=== PATIENT | male | born 1930 | race Caucasian/White ===

== ENCOUNTER → 2016-10-21 | Outpatient (CLI) | payer OTHER ==
[~2016-10-21] MED LIST: CIPR1TAB10 PO; CLTP PO; DOCU-94 PO; LISI-461 PO; MULT-506 PO; NAPR1TAB9 PO; OXYC-57 PO; PSYL1.7W PO; REGADENOSON 0.4 MG/5 ML SYR ONE
--- NOTE | 2016-10-21 18:03 | MYOCARDIAL PERFUSION SCAN ---
IMAGING TECHNIQUE: For the stress portion of the study, 31.7 mCi of technetium- 99m Cardiolite IV was injected at 13:20 on 10/21/2016. Thirty minutes following the injection, imaging of the heart was performed in multiple projections. For the rest portion of the study, 10.0 mCi of technetium-99m Cardiolite was injected IV at 11:25 a.m. pharmacologic stress was achieved through injection of 0.4 mg Lexiscan. One hour following the injection, imaging of the heart was performed in the same projections. FINDINGS: The short axis, vertical long axis and horizontal long axis images were reviewed in detail. There was a moderate to large area of fixed apical decrease in perfusion and a moderate sized partially reversible inferolateral defect, which worsened with stress. 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 Left ventricular systolic function was moderately reduced with wall motion abnormalities in the infarcted regions and mild global hypokinesis. Ejection fraction was calculated at 38%. IMPRESSION: 1. 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 2. Moderately reduced left ventricular systolic function with apical and inferolateral wall motion abnormalities. 3. Moderately reduced left ventricular systolic function (ejection fraction = 38%). MTDD
== END | disposition home or self-care (01) ==
LOC: C.NUCL 10:50
PROVIDERS: ATTEND Internal Medicine Cardiovascular Disease
DX: Z01.810 Encounter for preprocedural cardiovascular examination (principal); R07.89 Other chest pain

== ENCOUNTER 2016-10-23 09:21 | Day surgery (SDC) | payer OTHER ==
[2016-10-07 10:02] VITALS: BMI 35.0
--- NOTE | 2016-10-07 10:49 | PAT Medication Instructions ---
Service Date Oct 07, 2016. Current Home Medication List Calcium/Vitamin D (Caltrate 600 Plus *), 1 TAB PO DAILY PRN for PRN Lisinopril (Zestril), 10 MG PO BID Multivitamin (Multivitamin), 1 TAB PO QAM Naproxen (Aleve), 220 MG PO Q12 PRN for AIN Psyllium (Metamucil), 2 TAB PO BID Medication Instructions For Your Scheduled Surgery - Check with surgeon for instructions: Naproxen (Aleve), 220 MG PO Q12 PRN for AIN - Hold the following medications the morning of surgery: Psyllium (Metamucil), 2 TAB PO BID Multivitamin (Multivitamin), 1 TAB PO QAM Lisinopril (Zestril), 10 MG PO BID Calcium/Vitamin D (Caltrate 600 Plus *), 1 TAB PO DAILY PRN for PRN - Hold the following medications the morning of surgery with a sip of water: Lisinopril (Zestril), 10 MG PO BID - Take the following medications as scheduled the night before surgery: Psyllium (Metamucil), 2 TAB PO BID Calcium/Vitamin D (Caltrate 600 Plus *), 1 TAB PO DAILY PRN for PRN If you have any questions please call us at [phone] (Fanny Watson PA-C) or [phone] or [phone]
--- NOTE | 2016-10-07 11:27 | DIAGNOSTIC IMAGING REPORT ---
CHEST PREADMISSION(PA/LAT) CLINICAL HISTORY: Preoperative chest COMPARISON STUDY: 10/03/2014 FINDINGS: The cardiac and mediastinal contours are normal. There is no evidence of focal pulmonary consolidation. There is no evidence of failure. No pleural effusions are visualized.[ IMPRESSION: No active disease in the chest. Electronically signed by: Mateo Calix M.D. 10/07/2016 11:26 AM
[2016-10-07 11:51] LABS: BASO % 0.4 %; BASO ABS # 0.03 K/uL (0-0.2); COMPLETE YES; EOS % 2.5 %; HEMATOCRIT 41.1 % (42-52); IG% 0.2 %; LYMPH % 12.3 %; LYMPH ABS # 1.02 K/uL (1.2-3.4); MEAN CORPUSCULAR HEMOGLOBIN 27.6 pg (25-34); MEAN CORPUSCULAR HGB CONC 32.8 g/dl (32-36); MEAN PLATELET VOLUME 10.7 fL (7.4-10.4); MONO % 8.1 %; NEUT % 76.5 %; PLATELET COUNT 223 K/uL (130-400); RED BLOOD COUNT 4.89 M/uL (4.7-6.1); WHITE BLOOD COUNT 8.28 K/uL (4.8-10.8)
[2016-10-07 12:05] LABS: PARTIAL THROMBOPLASTIN RATIO 1.1; PROTHROMBIN TIME (PATIENT) 10.4 SECONDS (9.0-12.0)
[2016-10-07 12:10] LABS: BUN/CREATININE RATIO 27.3 (10-20); CALCIUM 9.1 mg/dl (8.5-10.1); CREATININE 1.3 mg/dl (0.60-1.40); POTASSIUM 5.5 mmol/L (3.5-5.1)
[2016-10-07 12:26] LABS: URINE APPEARANCE CLOUDY (CLEAR); URINE BILIRUBIN NEG (NEG); URINE COLOR YELLOW; URINE NITRITE NEG (NEG); URINE SPECIFIC GRAVITY 1.016 (1.000-1.030); UROBILINOGEN NEG (NEG)
[2016-10-07 12:38] LABS: MANUAL MICROSCOPIC REQUIRED? NO; REVIEW REQ? YES
[~2016-10-23] VITALS: Ht 170.2 cm; Wt 102.6 kg
[~2016-10-23 09:21] MED LIST changes: -CIPR1TAB10 PO; +CIPROFLOXACIN / D5W 400 MG IV SCH; -DOCU-94 PO; +LACTATED RINGER'S 1000ML 1,000 ML IV SCH; +MITOMYCIN FOR IR SCH; -OXYC-57 PO; -REGADENOSON 0.4 MG/5 ML SYR ONE
[2016-10-23 09:40] VITALS: BP 155/93; PULSE 55; TEMP 36.4; O2SAT 98; Ht 170.2 cm; Wt 102.6 kg
[2016-10-23] MEDS ORDERED: FENTANYL CITRATE INJ 50 MCG/1 ML 2 ML VIAL ONE (11:57)
[2016-10-23] MEDS ORDERED: MIDAZOLAM HCL 1 MG/ML 2ML VIAL ONE (11:57)
--- NOTE | 2016-10-23 12:19 | History & Physical Bridge Note ---
H&P Re-Evaluation Bridge Note: I have examined the patient, reviewed the History & Physical and in the interval since the performance of the History & Physical I have noted the following changes of clinical significance: No changes noted
[2016-10-23] MEDS ORDERED: CIPR1TAB10 PO (12:36)
[2016-10-23] MEDS ORDERED: DOCU-94 PO (12:36)
[2016-10-23] MEDS ORDERED: OXYC-57 PO (12:36)
--- NOTE | 2016-10-23 12:40 | Discharge Instructions ---
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 ) . (Radha Francisco CRNP) Instructions / Follow-Up Instructions / Follow-Up Mcdermott catheter removal in office Oct 27, Thursday at 9AM Pathology review and post-operative visit on Nov 05, 10AM (Donny Goetz MD, Urology) Discharge Diet Recommended Diet: Regular Diet (Radha Francisco CRNP) Recommended Diet: Regular Diet (good fluid intake) (Donny Goetz MD, Urology) Pending Studies Studies pending at discharge: no (Radha Francisco CRNP) Studies pending at discharge: yes List of pending studies: Pathology report (Donny Goetz MD, Urology) Medical Emergencies . Who to Call and When: Medical Emergencies: If at any time you feel your situation is an emergency, please call 911 immediately. . (Radha Francisco CRNP) Non-Emergent Contact Non-Emergency issues call your: Urologist Call Non-Emergent contact if: temperature is above 101.5, your pain is not controlled, your pain is worsening, your pain is unusual for you, your pain is concerning you . (Radha Francisco CRNP) . "Provider Documentation" section prepared by Radha Francisco. (Radha Francisco CRNP) VTE Core Measure Inpt VTE Proph given/why not?: SCD's (Radha Francisco CRNP) [place] Drug Monitoring Program Search Results: patient reviewed within database, no issues identified (Radha Francisco CRNP)
[2016-10-23] MEDS ORDERED: OXYCODONE/ACETAMINOPHEN 5-325 TAB PO PRN ×2 (12:45→13:45)
[2016-10-23] MEDS ORDERED: PROPOFOL IV EMULSION 10 MG/ML 20 ML VIAL IV ONE (12:49)
[2016-10-23] MEDS ORDERED: LIDOCAINE HCL 2% 2 ML VIAL (20MG/ML) ONE (12:49)
[2016-10-23] MEDS ORDERED: ONDANSETRON INJ 2 MG/ML 2 ML VIAL ONE (13:01)
[2016-10-23] MEDS ORDERED: PHENYLEPHRINE 100MCG/ML 5ML SYR ONE (13:01)
[2016-10-23] MEDS ORDERED: BELLADONNA/OPIUM SUPP 60 MG SUPP PR ONE ×2 (13:01→13:41)
[2016-10-23] MEDS ORDERED: EpHEDrine SULFATE 50MG/5ML SYR ONE (13:11)
--- NOTE | 2016-10-23 13:31 | [facility] Post Operative Brief Note ---
Immediate Operative Summary Operative Date Oct 23, 2016. Pre-Operative Diagnosis Bladder Tumor Post-Operative Diagnosis Bladder Tumor, Bladder Neck Obstruction Procedure(s) Performed Cystoscopy, Bladder Biopsy, Fulguration, Transurethral Resection of Bladder Neck, Instillation of Mitomycin C Surgeon Dr. Donny Goetz Site Physician Surgeon(s) NA Estimated Blood Loss 20 ml Findings Obstructive bladder neck hindering access to dome - resected, numerous small flat tumors, apparently low grade with borderline surrounding mucosa, 30 mg of Mitomycin instilled in 30 cc H2O Specimens A.) Anterior Bladder Biopsy B.) Posterior Bladder Biopsy C.) Prostate Chips Drains 22 fr [place]way, 10 cc H2O Anesthesia GALMA Complication(s) None Disposition Recovery Room / PACU
[2016-10-23] MEDS ORDERED: PHENAZOPYRIDINE HCL 100 MG TAB PO PRN (13:45)
--- NOTE | 2016-10-23 13:53 | Anesthesiology Progress Note ---
Anesthesia Post Op Note Date & Time Oct 23, 2016 at 13:52 Vital Signs Vital Signs Past 12 Hours Date Time Temp Pulse Resp B/P Pulse Ox O2 Delivery O2 Flow Rate FiO2 10/23/16 09:40 36.4 55 20 155/93 98 Room Air Notes Mental Status: alert / awake / arousable, participated in evaluation Pt Amnestic to Procedure: Yes Nausea / Vomiting: adequately controlled Pain: adequately controlled Airway Patency, RR, SpO2: stable & adequate BP & HR: stable & adequate Hydration State: stable & adequate Anesthetic Complications: no major complications apparent
[2016-10-23] MEDS ORDERED: EpHEDrine SULFATE INJ 50 MG/ML AMP IV PRN (14:00)
[2016-10-23] MEDS ORDERED: FENTANYL CITRATE INJ 50 MCG/1 ML 2 ML VIAL IV PRN (14:00)
[2016-10-23] MEDS ORDERED: ONDANSETRON INJ 2 MG/ML 2 ML VIAL IV PRN (14:00)
[2016-10-23] MEDS ORDERED: ATROPINE SULFATE 0.1 MG/ML 5ML SYR IV PRN (14:00)
[2016-10-23 14:40] VITALS: BP_SYST 116; BP_DIAS 65; BP_DIAS 82; PULSE 51; TEMP 36.5; O2SAT 98
[2016-10-23 15:10] VITALS: BP 117/60; PULSE 55; TEMP 36.5; O2SAT 98
[2016-10-23 15:50] VITALS: BP 126/77; PULSE 55; TEMP 36.4; O2SAT 98
--- NOTE | 2016-10-24 00:42 | OPERATIVE REPORT ---
DATE OF OPERATION: 10/23/2016 PREOPERATIVE DIAGNOSIS: Anterior bladder tumors. POSTOPERATIVE DIAGNOSIS: Same. PROCEDURE: Cystoscopy, bladder biopsy, fulguration of bladder tumors, transurethral resection of the prostate at the bladder neck, instillation of mitomycin C. SURGEON: Dr. Donny Goetz. PPAP COORDINATOR: None. ANESTHESIA: General anesthesia with laryngeal mask. COMPLICATIONS: None. FINDINGS: Tight bladder neck requiring resection to navigate to the dome of the bladder; multiple small, apparently low-grade papillary lesions biopsied and fulgurated with no residual tumor; 3 mg of mitomycin instilled in 30 mL of water at the end of the case. SPECIMEN SENT TO PATHOLOGY: Anterior bladder tumor, posterior bladder tumor and prostate chips. DRAINS LEFT IN PLACE: Include a 22-Cymraes Mcdermott catheter with 10 mL of sterile water in the balloon. ESTIMATED BLOOD LOSS: Minimal. COMPLICATIONS: None. BRIEF HISTORY: Mr. 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 Please see H\T\P for further details. After discussion of risks and benefits of various forms of management, he has decided upon transurethral resection of this tumor and is being brought to the hospital for this purpose. Intravenous ciprofloxacin provided for antibiotic coverage and SCDs used for DVT prophylaxis. PROCEDURE IN DETAIL: The patient was properly identified and brought to the operative suite. After identification of appropriate consent on the chart, general anesthesia with laryngeal mask was initiated and the patient was prepped and draped in standard fashion for this procedure, full timeout procedure was followed. A 24-Cymraes resectoscope was inserted into the bladder under direct visualization using a visual obturator. The patient was noted to have a normal urethra and mild to moderate lateral lobe hypertrophy with an elevated and somewhat firm bladder neck. Ureteral orifices were noted in the normal anatomic location and noted to be well removed from the bladder neck. Grade 2 trabeculation of the bladder was present. Papillary lesions in the anterior bladder were consistent with previous office cystoscopy and surrounding mucosa was noted to be borderline in appearance. Posterior bladder also had some villous reddish mucosa, felt to be borderline. The lateral dominguez and bladder floor were noted to be within normal limits. Navigating the rigid cystoscope to the dome of the bladder was noted to be limited due to the presence of the patient's elevated and rather firm bladder neck. Bipolar transurethral resection of the obstructing bladder neck tissue was performed circumferentially with a relaxing incision at the 5 and 7 o'clock positions. The lateral lobes were left intact. This was performed to allow access to the dome. Prostate chips were irrigated free and bipolar button was used to cauterize the fossa. This allowed for easier access to the dome of the bladder. The patient's tumors were noted to be relatively small and not pedunculated. Therefore, to avoid bladder perforation, the resectoscope was removed and a 22-Cymraes rigid cystoscope was inserted into the bladder. Cold cup biopsies of sales representative printing areas of mucosal abnormality were taken from both the dome and the posterior bladder. After this was complete, no evidence of significant perforation was appreciated. A button was used to obtain hemostasis, and fulguration of the dome of the bladder, any visible tumor and borderline areas of mucosa were performed until no residual abnormal tissue was appreciated. Excellent hemostasis was noted throughout the bladder. Bladder was drained and the resectoscope was removed. A 22-Cymraes Mcdermott catheter was placed with 10 mL of sterile water in the balloon. Mitomycin was instilled into the bladder as noted and the bladder was clamped for approximately 1-1/2 hours. Belladonna and opium suppository was placed into the rectum for additional hemostasis. Anesthesia was reversed and the patient was transferred to the recovery room in stable condition. FOLLOWUP CARE: Seeing the patient's biopsies and resection at the level of the bladder neck, Mcdermott catheter will be left in place with a trial of void in a few days. The bladder will be drained and placed to gravity drainage prior to discharge from hospital. Prescription for ciprofloxacin, Colace and analgesics were provided. The patient is instructed to contact our service should he note any fevers, chills, nausea, vomiting or other significant difficulties in the postoperative period. I attest to the content of the Intraoperative Record and any orders documented therein. Any exceptio ns are noted below.
== END 2016-10-23 16:10 | disposition home or self-care (01) ==
LOC: C.ACU 09:21
PROVIDERS: ATTEND Urology
DX: C67.9 Malignant neoplasm of bladder, unspecified (principal); C61 Malignant neoplasm of prostate; N40.1 Benign prostatic hyperplasia with lower urinary tract symptoms; R31.0 Gross hematuria; I12.9 Hypertensive chronic kidney disease with stage 1 through stage 4 chronic kidney disease, or unspecified chronic kidney disease; N18.3 Chronic kidney disease, stage 3 (moderate); F41.9 Anxiety disorder, unspecified; M19.90 Unspecified osteoarthritis, unspecified site; I49.1 Atrial premature depolarization; K22.4 Dyskinesia of esophagus; I49.3 Ventricular premature depolarization

== ENCOUNTER → 2016-12-01 | Outpatient (CLI) | payer OTHER ==
[~2016-12-01] MED LIST changes: +CIPR1TAB10 PO; -CIPROFLOXACIN / D5W 400 MG IV SCH; -LACTATED RINGER'S 1000ML 1,000 ML IV SCH; -MITOMYCIN FOR IR SCH; +OXYC-57 PO
== END | disposition home or self-care (01) ==
LOC: C.LABSPEC 17:59
PROVIDERS: ATTEND Nurse Practitioner Adult Health
DX: N39.0 Urinary tract infection, site not specified (principal)

== ENCOUNTER → 2016-12-08 | Outpatient (CLI) | payer OTHER | END | disposition home or self-care (01) | LOC: C.LABSPEC 17:29 | PROVIDERS: ATTEND Nurse Practitioner Family | DX: N39.0 Urinary tract infection, site not specified (principal) ==

== ENCOUNTER → 2016-12-22 | Outpatient (CLI) | payer OTHER | END | disposition home or self-care (01) | LOC: C.LABSPEC 17:12 | PROVIDERS: ATTEND Urology | DX: R31.0 Gross hematuria (principal); N39.0 Urinary tract infection, site not specified ==

== ENCOUNTER → 2017-02-18 | Outpatient (CLI) | payer OTHER | END | disposition home or self-care (01) | LOC: C.PATHSPEC 17:21 | PROVIDERS: ATTEND Urology | DX: D49.4 Neoplasm of unspecified behavior of bladder (principal); N40.0 Benign prostatic hyperplasia without lower urinary tract symptoms; N39.0 Urinary tract infection, site not specified ==

== ENCOUNTER → 2018-01-11 | Outpatient (CLI) | payer OTHER ==
[~2018-01-11] MED LIST changes: -CIPR1TAB10 PO; -OXYC-57 PO
[2018-01-11 10:02] LABS: BLOOD UREA NITROGEN 29 mg/dl (7-18); CREATININE 1.24 mg/dl (0.60-1.40)
[2018-01-11 13:40] LABS: ALBUMIN 3.8 gm/dl (3.4-5.0); ALT/SGPT 16 U/L (12-78); BLOOD UREA NITROGEN 30 mg/dl (7-18); CALCIUM 8.9 mg/dl (8.5-10.1); CARBON DIOXIDE 27 mmol/L (21-32); CREATININE 1.34 mg/dl (0.60-1.40); GLUCOSE 97 mg/dl (70-99); POTASSIUM 4.9 mmol/L (3.5-5.1); SODIUM 137 mmol/L (136-145)
[2018-01-11 13:43] LABS: ALKALINE PHOSPHATASE 78 U/L (45-117); AST/SGOT 10 U/L (15-37); TOTAL PROTEIN 6.7 gm/dl (6.4-8.2)
== END | disposition home or self-care (01) ==
LOC: C.LAB1850 08:20
PROVIDERS: ATTEND Urology
DX: R53.83 Other fatigue (principal); C61 Malignant neoplasm of prostate; C67.9 Malignant neoplasm of bladder, unspecified; N39.0 Urinary tract infection, site not specified

== ENCOUNTER → 2018-01-25 | Outpatient (CLI) | payer OTHER ==
[~2018-01-25] MED LIST changes: +OPTIRAY 300 IV PRN
--- NOTE | 2018-01-25 14:27 | DIAGNOSTIC IMAGING REPORT ---
IVP W/OR W/O TOMOGRAMS CLINICAL HISTORY: C61 Prostate [id number] Bladder [id number] UTI (urinary tract COMPARISON STUDY: Abdomen and pelvis CT 08/13/2016. FINDINGS: Indexer image shows no renal or ureteral calculi. 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 Following the intravenous administration of contrast there is prompt and symmetric perfusion of the kidneys. Lobular contour to the left kidney. The kidneys are normal in size. No hydronephrosis. No suspicious filling defects seen within the opacified bilateral renal collecting systems, ureters, or bladder. Of note, there is suboptimal evaluation of the urinary system due to overlapping bowel and incomplete filling of the renal collecting systems and ureters. The bladder is normal in size. No significant post void residual. IMPRESSION: 1. No renal or ureteral calculi. 2. No hydronephrosis. 3. No suspicious filling defects seen within the opacified bilateral renal collecting systems, ureters, or bladder. Electronically signed by: Kevin Schmidt M.D. 01/25/2018 2:24 PM Dictated Date/Time: 01/25/2018 2:22 PM
== END | disposition home or self-care (01) ==
LOC: C.RAD 12:28
PROVIDERS: ATTEND Urology
DX: C61 Malignant neoplasm of prostate (principal); C67.9 Malignant neoplasm of bladder, unspecified; N39.0 Urinary tract infection, site not specified